=== PATIENT | male | born 1950 | race Caucasian/White ===

== ENCOUNTER → 2016-11-14 | Day surgery (SDC) | payer MEDICARE, OTHER ==
[~2016-11-14] MED LIST: BUPIVACAINE HCL PF 0.75% 30 ML VIAL ONE; LACTATED RINGER'S 1000 ML INJ 1,000 ML ONE; LIDOCAINE 1.5%/EPINEPHrine 1:200,000 PF SOLN 30 ML AMP ONE; MIDAZOLAM HCL 5 MG/ML VIAL (1 ML) ONE; PROPOFOL 500 MG/50 ML BTL IV ONE; ceFAZolin 2 GM PREMIX 50 ML ONE
--- NOTE | 2016-11-16 17:25 | MP ---
cc: SWATI SOLITARIO DATE OF SURGERY: 11/14/2016. PREOPERATIVE DIAGNOSIS: 1. Right shoulder rotator cuff tear. 2. Right shoulder impingement syndrome. 3. Right shoulder SLAP labral tear. POSTOPERATIVE DIAGNOSIS: 1. Right shoulder rotator cuff tear. 2. Right shoulder impingement syndrome. 3. Right shoulder SLAP labral tear. OPERATIVE PROCEDURE PERFORMED: 1. Right shoulder arthroscopic rotator cuff repair. 2. Right shoulder arthroscopic subacromial decompression. 3. Right shoulder arthroscopic extensive debridement of SLAP labral tear. SURGEON: Dr. Swati Solitario. SLUBBER RUNNER: ISAURO Rg. ANESTHESIA: General with interscalene block. ESTIMATED BLOOD LOSS: Less than 10 cc. COMPLICATIONS: None. IMPLANTS USED: Arthrex. JUSTIFICATION FOR THE PROCEDURE: This patient is a 66-year male with history of increasing pain and weakness in regards to his right shoulder. He has had significant progression of symptoms in spite of conservative treatment. The clinical exam as well as MRI confirmed the above-named findings. The patient was counselled as to the risks, benefits and alternatives to the above-named proposed surgical procedure and he did wish to proceed with surgery. DESCRIPTION OF THE PROCEDURE IN DETAIL: Written consent was obtained. The patient was identified by name and the patient was taken to the operating room and placed supine on the operating room table. General anesthesia was administered as well as 2 grams of IV Ancef. He did receive preoperative interscalene block. The patient was carefully turned to the left lateral decubitus position. A lateral arm roll was placed. All bony prominences and pressure points were well padded. The patient's neck was carefully monitored and kept neutral. An arthroscopic arm tavarez was gently applied to the right upper extremity with 10 pounds traction placed. The right shoulder was prepped and draped using as isopropyl alcohol, Hibiclens solution and DuraPrep solution. After a time-out was performed, standard posterior and anterior glenohumeral arthroscopic portals were established. The glenohumeral joint revealed evidence of extensive labral tearing along the anterior, superior and posterior portions and extensive debridement of labrum was performed with an arthroscopic shaver to include the three o'clock to the twelve o'clock position and back down to the nine o'clock position. The biceps origin had evidence of partial tearing which was also debrided. There was evidence of a full-thickness tear of the supraspinatus tendon as visualized on glenohumeral joint and also evidence of tearing and detachment of the subscapularis portion of the rotator cuff tendon. At this point, an Arthrex suture lasso was used to shuttle a #2 FiberLink suture through the torn subscapularis tendon. The suture was then placed through the eyelet of an Arthrex 4.75 mm Bio SwiveLock anchor. The anchor was then inserted into the lesser tuberosity for surgical repair of the subscapularis. The repair was probed and noted to have excellent stability and fixation. Attention was turned the subacromial space where there was evidence of significant impingement bursitis. An arthroscopic shaver was introduced from a lateral portal. A subacromial decompression was performed. The shaver was used to perform extensive bursectomy. The arthroscopic bur was used to perform an acromioplasty and the cautery device was used to release the coracoacromial ligament. There was evidence of a full-thickness tear again of the supraspinatus portion of the rotator cuff tendon along the greater tuberosity. The greater tuberosity was then decorticated with an arthroscopic bur. An Arthrex Scorpion device was used to shuttle a #2 FiberTape suture through the anterior and posterior portions of the torn tendon. A #2 FiberLink was placed along the posterior portion. All three suture limbs were then placed through the eyelet of an Arthrex 4.75 mm Bio SwiveLock anchor. The sutures were tensioned and the anchor was then inserted in the greater tuberosity. After appropriate tensioning of sutures and implantation of the anchor, the rotator cuff tendon repair was probed and noted to have good stability and fixation. The arthroscope portals were closed with 3-0 Prolene suture. Sterile dressing were applied. The patient was placed in sling and swathe immobilizer. The patient tolerated the procedure well. NOTE ISARUO Rg, was present during the entire procedure to include patient positioning and the procedure itself. The medical necessity of an PHOTOCOPY OPERATOR was indicated in this case due to the complexity of the procedure. He assisted with appropriate manipulation of the arm and also manipulation of the camera. He assisted with shuttling of the sutures and also implantation of suture anchors for the purposes of rotator cuff tendon repair. MD BEN Mcdonald/SELVIN /9:43 AM /5:15 PM
== END | disposition home or self-care (01) ==
LOC: ESDC 06:44
PROVIDERS: ATTEND Orthopaedic Surgery Sports Medicine
DX: M75.121 Complete rotator cuff tear or rupture of right shoulder, not specified as traumatic (principal); M75.41 Impingement syndrome of right shoulder; S43.431A Superior glenoid labrum lesion of right shoulder, initial encounter
CPT/HCPCS: 01630; 01991; 29823; 29826; 29827; 64417; C1713; J0690; J2250; J7120